=== PATIENT | male | born 2000 | race Caucasian/White ===

== ENCOUNTER 2021-07-21 10:10 | Emergency (ER) | payer SELFPAY ==
[2021-07-21 10:20] VITALS: BP 122/79; PULSE 83; RESP 18; TEMP 37.3; O2SAT 99; BMI 30.2
--- NOTE | 2021-07-21 10:47 | HMH.EDUTC ---
[facility] [place] Clinical Impression: Pharyngitis Qualifiers: Pharyngitis/tonsillitis etiology: unspecified etiology Qualified Code(s): J02.9 - Acute pharyngitis, unspecified Disposition: Home, Self-Care Condition on Discharge: Good Instructions: Sore Throat, DI for Pharyngitis/Tonsillopharyngitis -- Adult Additional Instructions: Drink plenty of fluids. Take tylenol or ibuprofen for pain or fever. Take the medications as directed. Follow up with your regular doctor. GO TO THE ER FOR ANY WORSENING SYMPTOMS Throw your tooth brush away and get a new one. Don't start the oral steroids until tomorrow, since you had the shot here today. Prescriptions: Brompheniramine/Pseudoephed/Dm [Bromfed Dm Cough Syrup] 5 ml PO Q6HP PRN #240 ml PRN Reason: Cough Transmission Status: Received by [id number] methylPREDNISolone [Medrol] 4 mg PO DIRECTED 6 Days #21 packet Transmission Status: Received by [id number] Azithromycin [Z-Collin 250mg Tab*] 250 mg PO UD DOSE PK #6 tab Transmission Status: Received by [id number] Referrals: Provider,Referral, [Primary Care Provider] - Time of Disposition: 11:35 Medical Decision Making - Medical Records Medical records reviewed: No: I reviewed the patient's medical records. - Grey Inquiry Pt receiving controlled substance: No Vital Signs: 07/21/21 10:20 07/21/21 11:39 Temperature 99.1 F 99.1 F Temperature Source Oral Pulse Rate 83 Pulse Rate [Left Brachial] 83 Respiratory Rate 18 18 Blood Pressure 122/79 Blood Pressure [Left Arm] 122/79 Blood Pressure Mean [Left Arm] 93 Blood Pressure Source [Left Arm] Automatic Cuff Blood Pressure Position [Left Arm] Sitting 02 Sat by Pulse Oximetry 99 Oxygen Delivery Method Room Air - Lab Data Lab results reviewed: Yes: I reviewed the patient's lab results. Lab Results 07/21/21 11:02: Strep Scn Rapid Clinic Negative 07/21/21 11:25: Chlamy pneumoniae PCR Not detected, Adenovirus (PCR) Not detected, B. pertussis DNA (PCR) Not detected, Coronavirus OC43 (PCR) Not detected, Coronavirus HKU1 (PCR) Not detected, Coronavirus 229E (PCR) Not detected, SARS-CoV-2 (PCR) Not detected, Coronavirus NL63 (PCR) Not detected, Human Metapneumovir PCR Not detected, Influenza A (H1) PCR Not detected, Influ A (H1N1/09) PCR Not detected, Influenza A (H3) PCR Not detected, Influenza Type A (PCR) Not detected, Influenza Type B (PCR) Not detected, M. pneumoniae (PCR) Not detected, Parainfluenza 1 (PCR) Not detected, Parainfluenza 2 (PCR) Not detected, Parainfluenza 3 (PCR) Not detected, Parainfluenza 4 (PCR) Not detected, RSV (PCR) Not detected, Entero/Rhino (PCR) Not detected 07/21/21 11:25: Monoscreen Negative Orders (Tests/Meds): ED MEDICATIONS Discontinued Medications Generic Name Dose Route Start Last Admin Trade Name Freq PRN Reason Stop Dose Admin Ceftriaxone Sodium 1 gm 07/21/21 11:17 07/21/21 11:35 Ceftriaxone 1gm Vial IM 07/21/21 11:18 1 gm ONCE ONE Administration Lidocaine HCl 0 ml 07/21/21 11:17 07/21/21 11:35 Lidocaine 1% 5ml Pf Vial IM 07/21/21 11:18 2 ml ONCE ONE Administration Methylprednisolone Sodium Succinate 125 mg 07/21/21 11:17 07/21/21 11:35 Methylprednisolone Sod Succ 125mg Vial IM 07/21/21 11:18 125 mg ONCE ONE Administration ORDERS Category Date Time Status Strep Screen Confirmation Stat Micro 07/21/21 11:02 [place] [facility] [place] - General Stated complaint: sore throat Time Seen by Provider: 07/21/21 10:47 Mode of Arrival: Ambulatory Source of Information: Patient Limitations: No Limitations Description of Symptoms (Recalled from Triage Doc. by RN): PATIENT C/O SORE THROAT WITH TROUBLE SWALLOWING/TALKING. HE STATES HE WAS RECENTLY TREATED FOR SORE THROAT WITH ANTIBIOTICS AND STEROIDS AND WAS BETTER, HOWEVER SYMPTOMS CAME BACK ON SATURDAY HEENT Symptoms (Recalled from RN notes): Yes Resp Symptoms (Recalled from RN no
[2021-07-21 11:20] LABS: UTC Strep Screen (Rapid) Negative (Negative)
[2021-07-21 11:39] VITALS: BP 122/79; PULSE 83; RESP 18; TEMP 37.3; O2SAT 99
[2021-07-21 11:49] LABS: Adenovirus,PCR Not Detected (NotDetected); Bordetella Pertussis Not Detected (NotDetected); Chlamydophila Pneumoniae, PCR Not Detected (NotDetected); Coronavirus 19, PCR Not Detected (NotDetected); Coronavirus 229E Not Detected (NotDetected); Coronavirus NL63 Not Detected (NotDetected); Coronavirus OC43 Not Detected (NotDetected); Coronovirus HKU1,PCR Not Detected (NotDetected); Human Metapneumovirus Not Detected (NotDetected); Influenza A, PCR Not Detected (NotDetected); Influenza AH1, 2009 Not Detected (NotDetected); Influenza AH1, PCR Not Detected (NotDetected); Influenza AH3,PCR Not Detected (NotDetected); Influenza B, PCR Not Detected (NotDetected); Mycoplasma Pneumoniae, PCR Not Detected (NotDetected); Parainfluenza 1, PCR Not Detected (NotDetected); Parainfluenza 2, PCR Not Detected (NotDetected); Parainfluenza 3, PCR Not Detected (NotDetected); Parainfluenza 4, PCR Not Detected (NotDetected); Respiratory Syncytial Virus Not Detected (NotDetected); Rhinovirus/Enterovirus Not Detected (NotDetected)
[2021-07-21 11:51] LABS: Monoscreen (Rapid) Negative (Negative)
== END 2021-07-21 11:53 | disposition home or self-care (01) ==
PROVIDERS: Emergency Provider Nurse Practitioner Family
DX: J02.9 Acute pharyngitis, unspecified (principal); R13.10 Dysphagia, unspecified; Z20.822 Contact with and (suspected) exposure to COVID-19
CPT/HCPCS: 86318; 87581; 87632; 87798; 87880; 96372; 99203; C9803; G0463; U0003; U0005

== ENCOUNTER 2022-10-11 18:34 | Emergency (ER) | payer OTHER, SELFPAY ==
[2022-10-11 18:36] VITALS: BP 148/92; PULSE 77; RESP 17; TEMP 36.7; O2SAT 97; BMI 30.7
[2022-10-11 18:42] VITALS: BP 148/92; PULSE 80; RESP 18; O2SAT 99
[2022-10-11 18:50] LABS: POC Glucose,Bedside 92 (70-110)
--- NOTE | 2022-10-11 18:55 | HMH.EDGENADL ---
Discharge Plan Disposition Patient Disposition: Home, Self-Care Condition: Fair Prescriptions Prescriptions: New prednisone 20 mg tablet 60 mg PO DAILY 7 Days Qty: 21 0RF acyclovir 400 mg tablet 400 mg PO Q8H Qty: 15 0RF Artificial Tears (cmc) 1 % drops 1 drp ophthalmic (eye) DAILY PRN (Reason: dry eye(s)) Qty: 15 0RF No Action azithromycin 250 MG tablet 250 mg PO UD DOSE PK Qty: 6 0RF Rx Instructions: Take two (2) tablets today, then one (1) tablet days #2 thru #5 methylprednisolone 4 MG tablets,dose pack 4 mg PO DIRECTED 6 Days Qty: 21 0RF [id number]-[id number]-NU 118 ML syrup 5 ml PO Q6HP PRN (Reason: Cough) Qty: 240 0RF Activity Restrictions/Add. Instructions Additional Instructions/Restrictions: You have been evaluated for facial weakness, diagnosed with a condition called Panda's palsy. This is likely due to a viral illness. Please take acyclovir and steroids as prescribed. Use artificial tears and eye patch at night. Follow-up with your primary care doctor in 1 to 2 days for symptom recheck. Return to the emergency department at once for any new or worsening symptoms, headache, vision changes, speech difficulty, numbness or weakness in your arms or legs Clinical Impressions Clinical Impression: Panda's palsy Instructions Patient Instructions: DI for [place] Palsy Discharge ED Provider: Luz Maria Crews Adult HPI General Chief complaint: PAIN Stated complaint: lrft side of face Time Seen by Provider: 10/11/22 18:40 Mode of Arrival: Ambulatory Source of Information: Patient Limitations: No Limitations History of Present Illness HPI narrative: 22-year-old male presenting to the emergency department with face and tongue numbness. Symptoms started yesterday. He noticed that food tasted abnormal out of the left side of his tongue. When he was looking in the mirror today, noticed that his left eye looked different than his right. His eye was somewhat difficult to close. Has had an upper respiratory infection recently, runny nose and congestion. He denies history of cold sores, HSV. No headache, vision changes, speech difficulty. No numbness, weakness, tingling in his arms or legs. No rashes on his skin. No history of Lyme disease. No new medications Related Data Previous Rx's Medication Instructions Recorded azithromycin 250 mg tablet 250 mg PO UD DOSE PK #6 tabs 07/21/21 maywzfbzpgecsks-eqqjzmjpthwraca-LA 5 ml PO Q6HP PRN Cough #240 mL 07/21/21 2 mg-30 mg-10 mg/5 mL oral syrup methylprednisolone 4 mg tablets in 4 mg PO DIRECTED 6 days #21 07/21/21 a dose pack packets acyclovir 400 mg tablet 400 mg PO Q8H #15 tabs 10/11/22 carboxymethylcellulose sodium 1 % 1 drp ophthalmic (eye) DAILY PRN 10/11/22 eye drops (Artificial Tears dry eye(s) #15 mL (carboxymethylcellulose)) prednisone 20 mg tablet 60 mg PO DAILY 7 days #21 tabs 10/11/22 Allergies Allergy/AdvReac Type Severity Reaction Status Date / Time No Known Allergies Allergy Verified 07/21/21 10:32 [facility] Disclaimer: The information contained in this section may have been updated after the patient was seen, as this information can be updated by other users. Social History Smoking Status: Never smoker alcohol intake: never current occupational status: employed Travel in the last 8 weeks: None ROS Obtained: Yes All systems reviewed & no additional complaints except as documented Constitutional Constitutional: Denies chills, Denies fever(s) and Denies headache(s) Eyes Eyes: Denies blind spots, Denies blurry vision and Reports irritation ENT Ears, Nose, Mouth, and Throat: Denies dizziness, Denies headache(s), Denies hearing loss, Denies lip swelling, Denies mouth lesions, Reports nasal congestion, Denies throat swelling and Denies tongue swelling Cardiovascular Cardiovascular: Denies chest pain, Denies dyspnea and Denies palpitations Respiratory Respiratory: Denies
[2022-10-11 19:00] VITALS: BP 118/86; PULSE 81; RESP 18; O2SAT 98
[2022-10-11 19:37] VITALS: BP 134/83; PULSE 75; RESP 19; TEMP 36.8; O2SAT 99
== END 2022-10-11 19:46 | disposition home or self-care (01) ==
PROVIDERS: Emergency Provider Emergency Medicine
DX: G51.0 Bell's palsy (principal)
CPT/HCPCS: 82962; 99283; 99284

== ENCOUNTER 2023-11-27 10:06 | Emergency (ER) | payer SELFPAY ==
[2023-11-27 10:25] VITALS: BP 145/81; PULSE 76; RESP 18; TEMP 36.6; O2SAT 98; BMI 34.4
--- NOTE | 2023-11-27 10:41 | EXP.UTC ---
Discharge Plan Disposition Patient Disposition: Home, Self-Care Condition: Good Referrals Follow up/Referrals: Provider,Referral, MD [Primary Care Provider] - See instructions Activity Restrictions/Add. Instructions Additional Instructions/Restrictions: You was given a list of accepting Family Providers Follow up with Family Doctor for further evaluation and testing Straight to ER if any life threatening symptoms Clinical Impressions Clinical Impression: Stomach discomfort Stand Alone Forms Stand Alone Forms: Work/School Release Instructions Patient Instructions: Diarrhea, DI for Nausea -- Adult Discharge ED Provider: Thuy Perrin [facility] [place] HPI General Stated complaint: abd pain, when attempting BM, starts to gag Mode of Arrival: Ambulatory Source of Information: Patient Limitations: No Limitations Time Seen by Provider: 11/27/23 10:41 Description of Symptoms (Recalled from Triage Doc. by RN): PATIENT STATES THAT FOR THE LAST MONTH HE HAS HAD OCCASIONAL STOMACH PAIN AND SOMETIMES GAGS WHEN HAVING A BOWEL MOVEMENT. HE REPORTS CRAMPING AND DIARRHEA THIS MORNING HEENT Symptoms (Recalled from RN notes): No Resp Symptoms (Recalled from RN notes): No Skin Symptoms (Recalled from RN notes): No MS Symptoms (Recalled from RN notes): No Functional Status (Recalled from RN notes): WNL History of Present Illness Provider Complaint: Patient states that for the last month he has been having episodes of gagging when he is trying to have a bowel movement but not everytime, cramping like pain that comes and goes and this morning he had a BM and it was diarrhea States he is not having any pain or gagging right now but wanted to come in and get checked Related Data Allergies Allergy/AdvReac Type Severity Reaction Status Date / Time No Known Allergies Allergy Verified 07/21/21 10:32 Worker's Comp Is this a Worker's Comp case?: No [facility] Disclaimer: The information contained in this section may have been updated after the patient was seen, as this information can be updated by other users. Social History (Updated 10/11/22 @ 19:37 by Luz Maria Crews DO) Smoking Status: Never smoker alcohol intake: never current occupational status: employed Travel in the last 8 weeks: None ROS Obtained: Yes All systems reviewed & no additional complaints except as documented and Yes Systems reviewed as appropriate & no additional complaints except as documented Constitutional Constitutional: Reports system reviewed and no additional complaints, except as documented and Reports as per HPI Cardiovascular Cardiovascular: Reports system reviewed and no additional complaints, except as documented and Reports as per HPI Respiratory Respiratory: Reports system reviewed and no additional complaints, except as documented and Reports as per HPI Gastrointestinal Gastrointestingal: Reports system reviewed and no additional complaints, except as documented, as per HPI, cramping, diarrhea (on and off) and nausea (on and off) Musculoskeletal Musculoskeletal: Reports system reviewed and no additional complaints, except as documented and Reports as per HPI Integumentary/Breasts Skin/Breast: Reports system reviewed and no additional complaints, except as documented and Reports as per HPI Physical Exam General General appearance: alert and in no apparent distress ENT ENT exam: Present mucous membranes moist Respiratory Respiratory exam: Present normal lung sounds bilaterally; Absent respiratory distress or wheezes Cardiovascular Cardiovascular exam: Present regular rate, normal rhythm and normal heart sounds Abdominal Exam Abdominal exam: Present soft and normal bowel sounds; Absent distention, tenderness, guarding, rebound or heel tap sign Neurological Exam Neurological exam: Present alert, oriented X3 and normal gait Medical Decision Making Grey Inquiry Pt receiving controlled substance: No Grey was queried for this patient: No Vital Signs: 11/27/23 10:25 Temperature 97.8 F Temperature Source Oral Pulse Rate [Left Brachial] 76 Respiratory Rate 18 Blood Pressure [Left Arm] 145/81 H Blood Pressure Mean [Left Arm] 102 Blood Pressure Source [Left Arm] Automatic Cuff Blood Pressure Position [Left Arm] Sitting 02 Sat by Pulse Oximetry 98 Oxygen Delivery Method Room Air Radiology Data #1: Image(s): KUB Image Reviewed: Yes I have reviewed radiologist's interpretation nonobstructing bowel gas pattern Linear opacity overlying the right colon at l3/l4 may be artifact or material within the colon Medical Decision Narrative: awaiting to go to xray Patient states that he is not having any pain or discomfort at this time
--- NOTE | 2023-11-27 10:45 | XR_ITS ---
FINAL REPORT CLINICAL HISTORY: cramping and pain on and off x 1mth COMPARISON: None FINDINGS: SINGLE VIEW ABDOMEN A single view of the abdomen was obtained. There is a nonobstructive bowel gas pattern. There are no abnormally dilated loops of small bowel. No abnormal calcifications are identified. There is a linear density noted in the right lower quadrant seen only on the supine abdomen view that is at approximately the L3-4 level. This may represent material in the colon. IMPRESSION: Nonobstructive bowel gas pattern. Linear opacity overlying the right colon at the L3-4 level, may be artifact or material within the colon. Reviewed, Interpreted and Dictated by Jeancarlos Sousa MD Transcribed by Umu Harper Authenticated and [facility]
[2023-11-27 13:16] VITALS: BP 145/81; PULSE 76; RESP 18; TEMP 36.6; O2SAT 98
== END 2023-11-27 13:18 | disposition home or self-care (01) ==
PROVIDERS: Emergency Provider Nurse Practitioner
DX: R10.819 Abdominal tenderness, unspecified site (principal)
CPT/HCPCS: 74018; 99212; 99213; G0463

== ENCOUNTER 2024-02-20 19:16 | Emergency (ER) | payer OTHER, SELFPAY ==
[2024-02-20 19:17] VITALS: BP 193/125; PULSE 86; RESP 20; TEMP 36.9; O2SAT 98; BMI 33.0
--- NOTE | 2024-02-20 19:31 | ED_ITS ---
Discharge Plan Disposition Patient Disposition: Home, Self-Care Chief Complaint: Urogenital-Male Prescriptions Prescriptions: New doxycycline hyclate 100 mg capsule 100 mg PO BID 7 Days Qty: 14 0RF Referrals Follow up/Referrals: Provider,Referral, [Primary Care Provider] - See instructions Activity Restrictions/Add. Instructions Additional Instructions/Restrictions: Avoid being in direct sunlight for long periods of time on doxycycline, you can get horrible sunburns with it. If in sun, wear hat, long sleeves, sunscreen. Call your family doctor to establish care for this visit to the emergency department and schedule follow-up within 48 hours to ensure improvement. If you have any worsening of your condition or any other concerning signs or symptoms, return to the emergency department or your primary care doctor for further evaluation. Clinical Impressions Clinical Impression: Left testicular pain Instructions Patient Instructions: DI for Urinary Tract Infection (UTI), DI for Urinary Tract Infection in Children Discharge ED Provider: Anam Jensen General Adult HPI General Chief complaint: Urogenital-Male Stated complaint: Pain left testicle,no injury Time Seen by Provider: 02/20/24 19:19 Mode of Arrival: Ambulatory Source of Information: Patient Limitations: No Limitations Description of Symptoms (Recalled from ER Triage Doc. by RN): Patient presents to ED with left testicle pain that started last weekend. Patien denies any swelling, fevers, or injury to testicle. Patient reports he started a HIV prevention medication last month as well. History of Present Illness HPI narrative: Please note that above description of symptoms, in this electronic medical record under categorization of recalled from ER triage doctor by RN are reflective of an initial nursing assessment, however, is not reflective of my full history and physical exam that was personally taken and clarified. Consequentially, this preceding description of symptoms, which may include the patient's categorized chief complaint in the EMR, do not reflect my personal clinical impression, and the ultimate description of history of present illness and patient stated complaints should be deferred to this section of the note. Unless stated otherwise or congruent with this section of the note, additional signs, symptoms, or incongruence should be interpreted as inaccurate with my clinical impression. Related Data Previous Rx's Medication Instructions Recorded doxycycline hyclate 100 mg capsule 100 mg PO BID 7 days #14 caps 02/20/24 Allergies Allergy/AdvReac Type Severity Reaction Status Date / Time No Known Allergies Allergy Verified 07/21/21 10:32 [facility] Disclaimer: The information contained in this section may have been updated after the patient was seen, as this information can be updated by other users. Social History (Updated 10/11/22 @ 19:37 by Luz Maria Crews DO) Smoking Status: Current every day smoker alcohol intake: never current occupational status: employed Travel in the last 8 weeks: None ROS Obtained: Yes All systems reviewed & no additional complaints except as documented Physical Exam General General appearance: alert Head Head exam: atraumatic and normocephalic Eye Eye exam: Present normal appearance, PERRL and EOMI Neck Neck exam: Present normal inspection, full ROM and trachea midline Respiratory Respiratory exam: Absent respiratory distress, wheezes, stridor, accessory muscle use or prolonged expiratory phase Cardiovascular Cardiovascular exam: Present other (Pulses equal symmetric in upper and lower extremities) Abdominal Exam Abdominal exam: Present soft; Absent distention, tenderness or pulsatile mass Extremities Exam Extremities exam: Absent edema Neurological Exam Neurological exam: Present alert, oriented X3 and CN II-XII intact; Absent motor sensory deficit Skin Skin exam: Present warm and dry; Absent diaphoresis or erythema Medical Decision Making Medical Records Medical records reviewed: Yes I reviewed the patient's medical records. Grey Inquiry Pt receiving controlled substance: No Grey was queried for this patient: No Vital Signs: 02/20/24 19:17 Temperature 98.4 F Temperature Source Oral Pulse Rate [Right Radial] 86 Respiratory Rate 20 Blood Pressure [Right Arm] 193/125 H Blood Pressure Mean [Right Arm] 147 Blood Pressure Source [Right Arm] Automatic Cuff Blood Pressure Position [Right Arm] Sitting 02 Sat by Pulse Oximetry 98 Oxygen Delivery Method Room Air Lab Data Lab Results 02/20/24 20:02: Urine Color Yellow, Urine Appearance Clear, Urine pH 6.0, Ur Specific [place] >= 1.030, Urine Protein Negative, Urine Glucose (UA) Negative, Urine Ketones 1+, Urine Blood Negative, Urine Nitrate Negative, Urine Bilirubin Negative, Urine Urobilinogen 0.2, Ur Leukocyte Esterase Negative, Urine RBC None, Urine WBC Occasional, Ur Squamous Epith Cells Occasional, Urine Bacteria None, Urine Mucus 1+ Orders (Tests/Meds): ED MEDICATIONS Discontinued Medications Generic Name Dose Route Start Last Admin Trade Name Freq PRN Reason Stop Dose Admin Ceftriaxone Sodium 1 gm 02/20/24 19:49 02/20/24 20:03 Ceftriaxone 1gm Vial IM 02/20/24 19:50 1 gm ONCE ONE Administration Doxycycline Hyclate 100 mg 02/20/24 19:50 02/20/24 20:04 Doxycycline Hycl 100 Mg Tablet PO 02/20/24 19:51 100 mg ONCE ONE Administration Ketorolac Tromethamine 15 mg 02/20/24 19:34 02/20/24 19:38 Ketorolac 30mg/Ml Vial IM 02/20/24 19:35 15 mg ONCE ONE Administration Lidocaine HCl 0 ml 02/20/24 19:49 02/20/24 20:03 Lidocaine 1% 5ml Pf Vial IM 02/20/24 19:50 2.1 ml ONCE ONE Administration ORDERS Category Date Time Status POCUS Point of Care (ER Only) Stat Exams 02/20/24 19:23 Taken UA [Urinalysis and Microscopic] Stat Lab 02/20/24 20:02 Completed Medical Decision Narrative: 24-year-old male otherwise healthy currently taking HIV prophylaxis medications presenting with left testicular pain. This has been going on since 02/12. Constant, throbbing, does not get better or worse by anything in particular. Patient denies trauma, patient denies fevers, chills, nausea, vomiting, diarrhea. No recent viral illnesses. No swelling of the testicle, no overlying scrotal changes. Patient is sexually active, does not use barrier protection. No history of STDs or STIs. No penile drainage, dysuria, hematuria, or any other concerns. History was obtained via conversation with patient. On arrival, patient hemodynamically stable, alert, oriented x4, appropriate, GCS 15, moving all extremities spontaneously, pupils equal and reactive to light. Full physical exam performed and significant for very well-appearing male in no acute distress. exam normal. No overlying scrotal changes. Cremasteric reflex intact. No tenderness on my exam. Differential includes inflammatory versus infectious orchitis, torsion, epididymitis, testicular fracture, spermatocele, among others. Bedside [id number] ultrasound largely normal, see ultrasound note for further information. Urinalysis without concern for UTI, but there are white blood cells concerning for possible orchitis. Conversation had with patient regarding STD prophylaxis, he is agreeable. 1 g ceftriaxone IM given. First dose of doxycycline given as well. 7 days doxycycline sent to the pharmacy. Because patient at baseline without signs or symptoms of clinical decompensation, deemed appropriate for discharge. Results were relayed to patient who voiced understanding and were agreeable to outpatient management and follow up. I discussed my clinical impression with patient and answered all questions. At this time, the evidence for any other entities in the differe ntial is insufficient to warrant any further testing or ED observation. This was explained as well. Advisory was given that persistent or worsening symptoms require further evaluation. I confirmed the understanding of this discussion. Shredder Tender disclaimer Much of this encounter note is an electronic foundation director spoken language to printed text. Electronic foundation director of the spoken language may permit errors. Although I have reviewed the note, some errors may still exist. Procedures Limited Ultrasound Indication:: Limited testicular ultrasound Indication: Testicular pain left Identified structures: Location: Left testicle, right testicle Findings: Normal bilateral testicles. Sclerotic calcification in left testicle. Normal blood flow to bilateral testicles. No evidence of hydrocele. Impression: Normal testicular ultrasound Images were saved to permanent archive The study was technically adequate Testicular/scrotal CPT Codes: 42503-02 This study was performed by me, and I personally interpreted all images/videos. Based on my clinical judgement, these images were adequate and did not necessitate further imaging. Critical Care Critical Care Time Critical Care Time: No
[2024-02-20] MEDS: KETOROLAC 30MG/ML VIAL 15 MG IM (19:38)
--- NOTE | 2024-02-20 19:41 | PC.NURSE ---
at bedside with US
[2024-02-20] MEDS: cefTRIAXone 1GM VIAL 1 GM IM (20:03)
[2024-02-20] MEDS: LIDOCAINE 1% 5ML PF VIAL IM (20:03)
[2024-02-20] MEDS: DOXYCYCLINE HYCL 100 MG TABLET PO (20:04)
[2024-02-20 20:07] LABS: Microscopic, Urine URINE MICROSCOPIC (MICROSCOPIC)
[2024-02-20 20:09] LABS: Appearance,Urine CLEAR (Clear); Bilirubin,Urine Negative (Negative); Blood, Urine Negative (Negative); Color,Urine YELLOW (Yellow); Glucose,Urine (UA) Negative (Negative); Ketones,Urine 1+ (Negative); Leukocyte Esterase,Urine Negative (Negative); Nitrate,Urine Negative (Negative); Protein,Urine Negative (Negative); Specific Gravity, Urine >= 1.030 (1.005-1.030); Urobilinogen,Urine 0.2 EU/dl (0.2)
[2024-02-20 20:32] LABS: WBC,Urine Occasional #/hpf (0-3)
[2024-02-20 20:33] LABS: Mucus,Urine 1+ /lpf; Squamous Epithelial Cell,Urine Occasional #/hpf (0-5)
[2024-02-20 20:49] VITALS: BP 147/90; PULSE 84; RESP 18; TEMP 37.1; O2SAT 97
[2024-02-24 20:22] LABS: Neisseria gonorrhoeae, NAA Negative (Negative)
== END 2024-02-20 20:53 | disposition home or self-care (01) ==
PROVIDERS: Emergency Provider Emergency Medicine
DX: N50.812 Left testicular pain (principal); F17.210 Nicotine dependence, cigarettes, uncomplicated
CPT/HCPCS: 81001; 87491; 87591; 96372; 99284; J0696; J1885

== ENCOUNTER 2025-04-07 09:51 | Emergency (ER) | payer OTHER, SELFPAY ==
[2025-04-07 10:01] VITALS: BP 177/109; PULSE 62; RESP 16; TEMP 36.7; O2SAT 98; BMI 31.1
--- NOTE | 2025-04-07 10:07 | XR_ITS ---
FINAL REPORT TECHNIQUE: Single view chest CLINICAL HISTORY: cough FINDINGS: A single view of the chest was obtained. The heart and mediastinum are within normal limits. The lungs are clear. There is no pneumothorax. IMPRESSION: No acute cardiopulmonary process. Reviewed, Interpreted and Dictated by Gladys Steele MD Transcribed by Vandana Vazquez Authenticated and [facility]
--- NOTE | 2025-04-07 10:07 | CT_ITS ---
PROCEDURE INFORMATION: Exam: CT Abdomen And Pelvis With Contrast Exam date and time: 04/07/2025 10:45 AM Age: 25 years old Clinical indication: Abdominal pain; Flank; Right; Additional info: Right flank pain TECHNIQUE: Imaging protocol: Computed tomography of the abdomen and pelvis with contrast. Radiation optimization: All CT scans at this facility use at least one of these dose optimization techniques: automated exposure control; mA and/or kV adjustment per patient size (includes targeted exams where dose is matched to clinical indication); or iterative reconstruction. Contrast material: ISOVUE; Contrast volume: 75 ml; Contrast route: IV; COMPARISON: CR XR KUB 11/27/2023 11:31 AM FINDINGS: Lungs: The lung bases are clear. Liver: Hepatic steatosis. No focal liver lesion identified. Gallbladder and biliary ducts: The gallbladder is unremarkable with no calcified stones visualized and no strandy inflammatory changes surrounding the gallbladder. Pancreas: The pancreas is normal in appearance. No evidence of pancreatic ductal dilatation. Spleen: Multiple, small old calcified granulomas in the spleen. Adrenal glands: The adrenal glands are normal in appearance. Kidneys and ureters: There is [id number] right hydronephrosis and right hydroureter secondary to a 2.5 mm calculus at the right UVJ. The left kidney is normal. Stomach and bowel: The small bowel loops are not thickened and are nondilated. The colon is unremarkable. Appendix: Status post appendectomy. Intraperitoneal space: Unremarkable. No free air. No significant fluid collection. Vasculature: Unremarkable. No abdominal aortic aneurysm. Lymph nodes: Unremarkable. No enlarged lymph nodes. Urinary bladder: The urinary bladder is normal in appearance. Reproductive: Unremarkable as visualized. Bones/joints: No acute osseous lesions. Soft tissues: There is a small fat containing left inguinal hernia. IMPRESSION: [id number] right hydronephrosis and right hydroureter secondary to a 2.5 mm calculus of the right UVJ.
--- OUTSIDE RECORDS SUMMARY | 2025-04-07 10:09 | XMS_ITS | Clinical Summary ---
Author Organization [facility] Address [address] [id number] Care Team Providers Care Soa Architect Name Role Phone Pcp, No Primary Care Provider Unavailabl e Allergies No known active allergies Medications No known medications Active Problems No known active problems Immunizations Immunization Administration Dates Next Due DTaP, Unspecified 2004, 4,07/28/2002,2000, 2000,2000 HPV, Quadrivalent 06/05/2012,03/17/2012 Hep A, ped/adol, 2 dose 03/24/2018,03/17/2012 Hep B, Adolescent or Pediatric 2000,1999 HiB, unspecified 2000 Hib (PRP-OMP) 01/21/2001 Hib / Hep B 2000 IPV 2004,2000,2000 ,2000 MMR 2004,09/27/2003,01/21/2001 Meningococcal MCV4, Unspecified 03/17/2012 Meningococcal MCV4P 03/24/2018 Pneumococcal Conjugate PCV 7 05/13/2001,11/27/19,2000,2000 Tdap 03/17/2012 Varicella 03/17/2012,01/21/2001 Social History Tobacco Use Types Packs/Day Years Used Date Smoking Tobacco: Never Smokeless Tobacco: Never Alcohol Use Standard Drinks/Week Comments No 0 (1 standard drink = 0.6 oz pur e alcohol) Sex and Gender Information Value Date Recorded Sex Assigned at Not on file Legal Sex Male 7:27 PM EDT Gender Identity Not on file Sexual Orientation Not on file Last Filed Vital Signs Vital Sign Reading Time Taken Comments Blood Pressure 127/78 06/20/2021 9:05 AM EST Pulse 71 06/20/2021 9:05 AM EST Temperature 36.3 C (97.3 F) 06/20/2021 9:05 AM EST Respiratory Rate - - Oxygen Saturation 98% 06/20/2021 9:05 AM EST Inhaled Oxygen Concentration - - Weight 96.2 kg (212 lb 1.3 oz) 06/20/2021 9:05 A M EST Height 175.3 cm (5' 9 ) 01/30/2021 6:50 PM EDT Body Mass Index 31.32 01/30/2021 6:50 PM EDT Plan of Treatment Health Maintenance Due Date Last Done Comments [facility]-Depression Screening 2000 [facility]-/Child/Adol SDOH Screenings 2000 HPV Vaccines (3 - Male 2-dose series) 09/17/2012 06/05/2012, 03/17/2012 [facility]- SDOH Screenings 01/17/2018 [facility]-Adult SDOH Screenings 01/17/2018 [facility]-DTaP,Tdap,and Td Vaccines (6 - Td or Tdap) 03/17/2022 03/17/2012, 2004, 09/27/2003, Additional history exists [id number] Vaccine (3 - 2023- season) 2024 05/27/2021, 03/20/2021 [facility]-Influenza Vaccine (#1) 2025 [facility]-Zoster Vaccines (1 of 2) 01/17/2050 03/17/2012, 01/21/2001 [facility]-Hepatitis B Vaccines Completed 000, 2000, 2000 [facility]-HIB Vaccines Completed 01/21/2001, , 2000 [facility]-Pneumococcal Vaccine: Pediatrics (0 to 5 Years) and At-Risk Patients (6 to 49 Years) Aged Out 05/13/2001, 2000, 2000, Additional history exists No longer eligible based on patient's age to complete this topic [facility]-IPV Vaccines Completed 2004, , 2000, Additional history exists [facility]-Varicella Vaccines Completed 03/17/2012, 2000 [facility]-Hepatitis A Vaccines Completed 03/24/2018, 01/2012 [facility]-Rotavirus Vaccines Aged Out No lo nger eligible based on patient's age to complete this topic Care Teams Soa Architect Relationship Specialty Start Date End Date Pcp, No [address] [place] [address] PCP - General 01/30/21
--- NOTE | 2025-04-07 10:14 | ED_ITS ---
<Statement entered by Irvin Armstrong MD - 04/07/25 13:09> I was consulted by the DEYANIRA, and we discussed the complexity of the problems being addressed. I approve the treatment and management plan for this patient's care in the emergency department, thus performing a substantive portion of the medical decision making. Irvin Armstrong MD Discharge Plan Disposition Patient Disposition: Home, Self-Care Prescriptions Prescriptions: New tamsulosin 0.4 mg capsule 0.4 mg PO DAILY Qty: 14 0RF ketorolac 10 mg tablet 10 mg PO Q8H PRN (Reason: pain) 5 Days Qty: 15 0RF Referrals Follow up/Referrals: Tate Magaña MD [Referring, Urology] - See instructions Provider,MD Shelbie [Primary Care Provider, Medical] - See instructions Activity Restrictions/Add. Instructions Additional Instructions/Restrictions: Drink lots of fluids. Please follow-up with urology for follow-up care. Take medications as directed. If any worsening symptoms occur please return to the ED. Clinical Impressions Clinical Impression: Kidney stone Instructions Patient Instructions: DI for Kidney Stones Print Language Print Language: Chinese Discharge ED Provider: Irvin Armstrong General Adult HPI General Chief complaint: PAIN Stated complaint: Pain in R side & vomiting Time Seen by Provider: 04/07/25 10:01 Mode of Arrival: Ambulatory Source of Information: Patient Description of Symptoms (Recalled from ER Triage Doc. by RN): C/O R Flank pain that radiates around to abdomen that started last night. This AM pt has also been nauseous and dry heaving prior to arrival to ED. W/ activity pt rates pain 7/10, at rest pt states it doesn't really bother him . History of Present Illness HPI narrative: 25-year-old male presents to the ED today for complaint of right flank pain that radiates around to the abdomen starting last night. He started dry heaving this morning. He denies any dysuria. No burning with urination. He does have a cough but complains that he is a heavy smoker. Patient also complains of chills but no fevers. No diarrhea. He does complain of abdominal pain with vomiting. No chest pain or shortness of breath. No other associated signs or symptoms. No history of kidney stones. Related Data Previous Rx's ?Medication ?Instructions ?Recorded ketorolac 10 mg tablet 10 mg PO Q8H PRN pain 5 days #15 04/07/25 tabs tamsulosin 0.4 mg capsule 0.4 mg PO DAILY #14 caps Allergies Allergy/AdvReac Type Severity Reaction Status Date / Time No Known Allergies Allergy Verified 10/10/24 10:25 [facility] Disclaimer: The information contained in this section may have been updated after the patient was seen, as this information can be updated by other users. Medical History (Updated 04/07/25 @ 12:45 by Sheila Waterman (ED), [employer]) No significant past medical history Surgical History (Updated 04/07/25 @ 09:59 by Nimco Queen RN) Hx of appendectomy Family History (Updated 04/07/25 @ 10:00 by Nimco Queen RN) Other No significant family history Social History (Updated 04/07/25 @ 10:00 by Nimco Queen RN) Smoking Status: Current every day smoker alcohol intake: never current occupational status: employed Travel in the last 8 weeks?: None Have you lived/traveled outside [place] in past 30 days?: No Contact w/someone who lives/traveled outside US past 30 days?: No Exposure to someone with infectious disease in past 14 days?: No Do you have a fever (greater than 100.4 F or 38 C)?: No Have you tested positive for COVID-19?: No Exposed to someone with COVID-19 in past 14 days?: No Do you have a sore throat?: No Do you have a cough?: No Do you have any weakness?: No Are you experiencing any nausea/vomitting?: Yes Do you have any diarrhea?: No Are you experiencing any unusual bleeding?: No Do you have any muscle aches/pain?: No Do you have any abdominal pain?: Yes Are you experiencing loss of taste or smell?: No ROS Obtained: Yes Systems reviewed as appropriate & no additional complaints except as documented Constitutional Constitutional: Reports as per HPI Physical Exam General General appearance: alert and in no apparent distress Head Head exam: normocephalic Eye Eye exam: Present PERRL and EOMI ENT ENT exam: Present normal oropharynx and mucous membranes moist Neck Neck exam: Present full ROM and trachea midline Respiratory Respiratory exam: Present normal lung sounds bilaterally Cardiovascular Cardiovascular exam: Present regular rate, normal rhythm, normal heart sounds, +S1 and +S2 Abdominal Exam Abdominal exam: Present soft and normal bowel sounds Extremities Exam Extremities exam: Present normal inspection, full ROM and normal capillary refill Back Exam Back exam: Present normal inspection Neurological Exam Neurological exam: Present alert, oriented X3 and normal gait Skin Skin exam: Present warm, dry and intact Medical Decision Making Medical Records Screening: Per USPSTF and CDC recommendations, given the prevalence of disease in our region, it is our hospital?s policy to screen for HIV and viral Hepatitis for all patients aged 18 and over and those with ongoing risk factors. Grey Inquiry Pt receiving controlled substance: No Grey was queried for this patient: No Vital Signs: 04/07/25 10:01 04/07/25 10:29 04/07/25 11:00 Temperature 98.0 F Temperature Source Oral Pulse Rate 73 65 Pulse Rate [Right Brachial] 62 Respiratory Rate 16 Blood Pressure 138/83 139/85 Blood Pressure [Right Arm] 177/109 H Blood Pressure Mean [Right Arm] 131 02 Sat by Pulse Oximetry 98 95 97 Oxygen Delivery Method Room Air Lab Data Lab Results 04/07/25 10:10: WBC 6.7, RBC 4.27 L, Hgb 13.2 L, Hct 39.2 L, MCV 91.8, MCH 30.9, MCHC 33.7, RDW 13.0, Plt Count 283, MPV 11.7 H, Neut % (Auto) 55.2, Lymph % (Auto) 33.0, Mayes % (Auto) 9.4 H, Eos % (Auto) 1.2, Baso % (Auto) 0.9, Neut # (Auto) 3.7, Lymph # (Auto) 2.2, Mayes # (Auto) 0.6, Eos # (Auto) 0.1, Baso # (Auto) 0.1, Sodium 142, Potassium 4.2, Chloride 108 H, Carbon Dioxide 24, Anion Gap 14.2, BUN 12, Creatinine 0.90, Estimated Creat Clear 185, Estimated GFR 103, Est GFR ( Amer) 124, Glucose 117 H, Calcium 9.5, Magnesium 1.9, Total Bilirubin 1.3, AST 41, ALT 57, Alkaline Phosphatase 103, Total Protein 8.6 H, A lbumin 5.1 H, Globulin 3.5 H, Albumin/Globulin Ratio 1.5, Lipase 49, HCV Ab ROS w/Rflx PCR Qn Negative 04/07/25 11:15: Urine Color Yellow, Urine Appearance Clear, Urine pH 7.5, Ur Specific [place] <= 1.005, Urine Protein Negative, Urine Glucose (UA) Negative, Urine Ketones Negative, Urine Blood Trace-i, Urine Nitrate Negative, Urine Bilirubin Negative, Urine Urobilinogen 0.2, Ur Leukocyte Esterase Negative 04/07/25 10:10 04/07/25 10:10 Orders (Tests/Meds): ED MEDICATIONS Generic Name Dose Route Start Last Admin Trade Name Freq PRN Reason Stop Dose Admin Sodium Chloride 10 ml 04/07/25 10:48 04/07/25 10:49 Sodium Chloride 0.9% 10ml Syr (Rad Only) IV 05/07/25 10:47 10 ml NEEDED PRN Administration Maintain IV Site Discontinued Medications Generic Name Dose Route Start Last Admin Trade Name Freq PRN Reason Stop Dose Admin Sodium Chloride 1,000 mls @ 999 mls/hr 04/07/25 10:07 04/07/25 11:21 Sod Chlor 0.9% 1000ml Bag IV 04/07/25 11:07 Infused .Q1H1M ONE Infusion Iopamidol 75 ml 04/07/25 10:48 04/07/25 10:49 Iopamidol-370 (76%);100ml Bottle IV 04/07/25 10:49 75 ml ONCE ONE Administration Ketorolac Tromethamine 30 mg 04/07/25 10:07 04/07/25 10:15 Ketorolac 30mg/Ml Vial IV 04/07/25 10:08 30 mg ONCE ONE Administration ORDERS Category Date Time Status CT abdomen pelvis w con Stat Cat Scan 04/07/25 10:07 Completed Chest XR -- portable [XR chest portable] Stat Exams 04/07/25 10:07 Completed CBC [Complete Blood Count Auto Diff] Stat Lab 04/07/25 10:10 Completed Comprehensive Metabolic Panel Stat Lab 04/07/25 10:10 Completed HIV Combo Routine Lab 04/07/25 10:10 Received Hepatitis C Ab Qual. W/ RFX Routine Lab 04/07/25 10:10 Completed Lipase Stat Lab 04/07/25 10:10 Completed Magnesium Stat Lab 04/07/25 10:10 Completed Urinalysis and Microscopic Stat Lab 04/07/25 11:15 Results Medical Decision Narrative: patient is a 25-year-old male presenting to the emergency department for evaluation of right flank pain and dry heaving. Patient is hemodynamically stable and nontoxic-appearing upon arrival, afebrile. Differential diagnosis includes kidney stone, musculoskeletal injury, viral illness among others. Workup will be conducted with hematologic labs, specific imaging. Initial inventions include crystalloid bolus, analgesics. Initial workup reviewed by me hematologic labs are remarkable for normal white count, urinalysis was normal with no infection otherwise unremarkable labs. Imaging informally interpreted by me and remarkable for nothing acute. Formal imaging read remarkable for 2.5 mm stone in the right UVJ with some mild hydro. Patient has no symptoms of infection. Toradol was given for pain and patient fell asleep. He is doing well. Upon repeat evaluation patient's pain is improved. Patient will be sent home with follow-up with urology. Critical Care Critical Care Time Critical Care Time: No
[2025-04-07] MEDS: KETOROLAC 30MG/ML VIAL 30 MG IV (10:15)
[2025-04-07] MEDS: 0.9 % SODIUM CHLORIDE 1000ML 1,000 ML 999 ML IV (10:15)
[2025-04-07 10:21] LABS: Hematocrit 39.2 % (42.0-52.0); Hemoglobin 13.2 g/dL (14.1-18.0); Immature Granulocytes % 0.3 %; Mean Corpuscular HGB Conc 33.7 g/dL (31.8-35.4); Mean Corpuscular Hemoglobin 30.9 pg (27.0-31.2); Mean Corpuscular Volume 91.8 fl (80-94); Nucleated Red Blood Cells % 0 %; Platelet Count 283 K/mm3 (142-424); Red Blood Count 4.27 M/mm3 (4.60-6.20); Red Cell Distribution Width-SD 43.2 fL; White Blood Count 6.7 K/mm3 (4.8-10.8)
--- NOTE | 2025-04-07 10:23 | PC.NURSE ---
Family @ bedside visiting
[2025-04-07 10:29] VITALS: BP 138/83; PULSE 73; O2SAT 95
[2025-04-07 10:30] LABS: Albumin Level 5.1 g/dl (3.5-5.0); Chloride 108 mmol/L (98-107)
[2025-04-07 10:31] LABS: Potassium 4.2 mmoL/L (3.5-5.1); Sodium 142 mmol/L (136-145)
[2025-04-07 10:33] LABS: Alanine Aminotransferase 57 U/L (12-78); Albumin/Globulin Ratio 1.5 (1.1-1.8); Alkaline Phosphatase 103 U/L (38-126); Anion Gap 14.2 mEq/L (5-15); Aspartate Amino Transferase 41 U/L (17-59); Bilirubin,Total 1.3 mg/dl (0.2-1.3); Blood Urea Nitrogen 12 mg/dl (9-20); Carbon Dioxide 24 mmol/L (22.0-30.0); Creatinine Clearance Estimated 185 mL/min (50-200); Creatinine,Serum 0.90 mg/dl (0.66-1.25); Estimated Glomerular Filt Rate 103 ml/min (>60); GFR (African American) 124 ML/MIN (>60); Globulin 3.5 g/dL (1.3-3.2); Total Protein,Serum 8.6 g/dl (6.3-8.2)
[2025-04-07 10:34] LABS: Calcium 9.5 mg/dl (8.4-10.2); Glucose 117 mg/dl (74-100); Lipase 49 U/L (23-300); Magnesium 1.9 mg/dl (1.6-2.3)
[2025-04-07] MEDS: IOPAMIDOL-370 (76%);100ML BOTTLE 75 ML IV (10:49)
[2025-04-07] MEDS: SODIUM CHLORIDE 0.9% 10ML SYR (RAD ONLY) 10 ML IV (10:49)
[2025-04-07 11:00] VITALS: BP 139/85; PULSE 65; O2SAT 97
--- NOTE | 2025-04-07 11:16 | PC.NURSE ---
Pt assisted to bathroom, UA collected
[2025-04-07 11:19] LABS: Microscopic, Urine URINE MICROSCOPIC (MICROSCOPIC)
[2025-04-07 11:34] LABS: Hepatitis C Ab Qual. W/ RFX NEGATIVE (Negative)
[2025-04-07 11:37] LABS: Bilirubin,Urine Negative (Negative); Color,Urine YELLOW (Yellow); Glucose,Urine (UA) Negative (Negative); Ketones,Urine Negative (Negative); Leukocyte Esterase,Urine Negative (Negative); PH,Urine 7.5 (5.0-8.5); Protein,Urine Negative (Negative); Specific Gravity, Urine <= 1.005 (1.005-1.030); Urobilinogen,Urine 0.2 EU/dl (0.2)
--- NOTE | 2025-04-07 12:39 | PC.NURSE ---
Alice @ bedside updating pt on POC
[2025-04-07 12:50] VITALS: BP 128/71; PULSE 68; RESP 16; TEMP 36.8; O2SAT 98
[2025-04-07 12:58] LABS: RBC,Urine Occasional #/hpf (0-3); Squamous Epithelial Cell,Urine Occasional #/hpf (0-5)
== END 2025-04-07 12:50 | disposition home or self-care (01) ==
PROVIDERS: Nurse Practitioner; Emergency Provider Student in an Organized Health Care Education/Training Program
DX: N13.0 Hydronephrosis with ureteropelvic junction obstruction (principal); N13.4 Hydroureter; R10.31 Right lower quadrant pain; M54.59 Other low back pain
CPT/HCPCS: 71045; 74177; 80053; 81001; 83690; 83735; 85025; 86803; 87389; 96361; 96374; 99284; J1885; J7030; Q9967